=== PATIENT | female | born 1945 | race Caucasian/White ===

== ENCOUNTER 2016-10-22 22:09 | Emergency (ER) | payer SELFPAY ==
[~2016-10-22] VITALS: Ht 160 cm; Wt 71.7 kg
--- NOTE | 2016-10-22 23:30 | NUR ---
Patient discharged to home in stable conditon. Written and verbal after care instructions given. Patient verbalizes understanding of instructions.
== END 2016-10-22 23:32 | disposition home or self-care (01) ==
LOC: ER 22:15
DX: L03.115 Cellulitis of right lower limb (principal)
CPT/HCPCS: A4663

== ENCOUNTER 2021-10-24 10:38 | Emergency (ER) | payer MEDICAID ==
[~2021-10-24] VITALS: Ht 160 cm; Wt 72.6 kg
--- NOTE | 2021-10-24 10:49 | NUR ---
Patient ambulatory accompanied by daughter, complaints of painful skin rash on RLQ of abdomen and right flank started 5 days ago. Denies nausea/vomiting, abdominal pain. Vitals stable.
--- NOTE | 2021-10-24 10:52 | NUR ---
MD at bedside, medical screening exam in process.
[2021-10-24] MEDS ORDERED: HYDROCODONE/APAP 5-325MG TABLET PO ONE (11:00)
[2021-10-24] MEDS ORDERED: ACYCLOVIR 400 MG TABLET PO ONE (11:00)
[2021-10-24] MEDS ORDERED: predniSONE 50 MG TABLET PO ONE (11:00)
[2021-10-24] MEDS ORDERED: ACYCLOVIR 200 MG CAPSULE ONE (11:06)
[2021-10-24] MEDS ORDERED: predniSONE 50 MG TABLET ONE (11:06)
[2021-10-24] MEDS ORDERED: HYDROCODONE/APAP 5-325MG TABLET ONE (11:07)
[2021-10-24] MEDS ORDERED: HYDR-4209 PO (11:09)
[2021-10-24] MEDS ORDERED: PRED50TA PO (11:09)
[2021-10-24] MEDS ORDERED: VALA10002 PO (11:09)
[2021-10-24 11:56] VITALS: BP 121/80
--- NOTE | 2021-10-24 11:56 | NUR ---
Patient discharged to home in stable condition. Written and verbal after care instructions given to patient and family. Patient verbalizes understanding of instructions. Stressed follow up or return to ER for worsening s/s. Instructed not to drive.
== END 2021-10-24 11:57 | disposition home or self-care (01) ==
LOC: ER 10:40
DX: B02.9 Zoster without complications (principal)
CPT/HCPCS: 99284; J7512; A4663

== ENCOUNTER 2021-10-31 11:08 | Emergency (ER) | payer MEDICAID ==
[~2021-10-31] VITALS: Ht 160 cm; Wt 63.5 kg
[~2021-10-31 11:08] MED LIST: HYDR-4209 PO; PRED50TA PO; VALA10002 PO
[2021-10-31] MEDS ORDERED: HYDR-4209 PO (11:37)
[2021-10-31] MEDS ORDERED: GABA300C PO (11:37)
[2021-10-31] MEDS ORDERED: HYDROCODONE/APAP 5-325MG TABLET PO ONE (11:45)
[2021-10-31] MEDS ORDERED: HYDROCODONE/APAP 5-325MG TABLET ONE (11:45)
--- NOTE | 2021-10-31 11:49 | NUR ---
Patient discharged to home in stable condition with brisk steady gait. Written and verbal after care instructions given to patient and family member who speaks fluent Malay. Patient and family verbalized understanding and compliance of instructions. Stressed follow up with primary doctor or return to ER for worsening s/s.
== END 2021-10-31 11:51 | disposition home or self-care (01) ==
LOC: ER 11:09
DX: B02.29 Other postherpetic nervous system involvement (principal); Z87.11 Personal history of peptic ulcer disease
CPT/HCPCS: A4663

== ENCOUNTER 2021-11-15 21:12 | Emergency (ER) | payer MEDICAID ==
[~2021-11-15] VITALS: Ht 165.1 cm; Wt 65.8 kg
[~2021-11-15 21:12] MED LIST changes: +GABA300C PO
--- NOTE | 2021-11-15 21:42 | NUR ---
pt in room 3 states has rash all over body says she thinks she has shingles.
--- NOTE | 2021-11-15 22:18 | NUR ---
Dr. Bello at bedside for MSE.
[2021-11-15] MEDS ORDERED: OXYC-128 PO (22:22)
[2021-11-15] MEDS ORDERED: FAMC500T3 PO (22:22)
[2021-11-15] MEDS ORDERED: OXYCODONE/APAP 5-325 MG TABLET ONE (22:25)
[2021-11-15] MEDS ORDERED: OXYCODONE/APAP 5-325 MG TABLET PO ONE (22:30)
[2021-11-15 22:35] VITALS: BP 128/70
--- NOTE | 2021-11-15 22:35 | NUR ---
Patient discharged to home in stable condition. Written and verbal after care instructions given. Patient verbalizes understanding of instructions. Stressed follow up or return to ER for worsening s/s.
== END 2021-11-15 22:36 | disposition home or self-care (01) ==
LOC: ER 21:23
DX: B02.29 Other postherpetic nervous system involvement (principal); Z87.11 Personal history of peptic ulcer disease; K21.9 Gastro-esophageal reflux disease without esophagitis
CPT/HCPCS: A4663

== ENCOUNTER 2022-02-16 11:59 | Emergency (ER) | payer MEDICAID, OTHER ==
[~2022-02-16] VITALS: Ht 157.5 cm; Wt 63.5 kg
[~2022-02-16 11:59] MED LIST changes: +FAMC500T3 PO; +OXYC-128 PO
[2022-02-16] MEDS ORDERED: IV NORMAL SALINE 500 ML BAG IV ONE (12:45)
[2022-02-16] MEDS ORDERED: MORPHINE SULFATE 4 MG/1 ML DISP.SYRIN IV ONE (12:45)
[2022-02-16] MEDS ORDERED: MORPHINE SULFATE 4 MG/1 ML DISP.SYRIN ONE (12:48)
[2022-02-16 12:59] LABS: *BILIRUBIN,URIN NEGATIVE (NEGATIVE); *CLARITY,URINE CLEAR (CLEAR); *COLOR,URINE YELLOW (YELLOW); *KETONES,URINE NEGATIVE (NEGATIVE); *UROBILINOGEN,URINE 0.2 E.U./dl (NORMAL); LEUKOCYTE ESTERASE ,URINE TRACE (NEGATIVE); NITRITE, URINE NEGATIVE (NEGATIVE); UGLUCOSE NEGATIVE (NEGATIVE)
[2022-02-16 13:19] LABS: HEMATOCRIT 40.8 % (31.2-41.9); MEAN CORPUSCULAR HEMOGLOBIN 30.5 uug (24.7-32.8); MEAN CORPUSCULAR VOLUME 90.6 fL (75.5-95.3); PLATELET COUNT (AUTO) 340 K/uL (179-408)
[2022-02-16 13:20] LABS: *BLOOD, URINE TRACE (NEGATIVE)
[2022-02-16 13:27] LABS: CARBON DIOXIDE 28 mmol/L (21-32); CHLORIDE 102 mmol/L (98-107); CREATININE 0.8 mg/dL (0.6-1.3); GLUCOSE 87 mg/dL (74-106); POTASSIUM 4.4 mmol/L (3.5-5.1); UREA NITROGEN, BLOOD 16 mg/dL (7-18)
[2022-02-16] MEDS ORDERED: SWABABLE VALVE TRANSFER SET EA MC ONE (13:28)
[2022-02-16] MEDS ORDERED: IOHEXOL 350 100 ML INFUS..BTL ONE (13:28)
[2022-02-16] MEDS ORDERED: IV NORMAL SALINE 250 ML IV ONE (13:28)
[2022-02-16 13:36] LABS: ALANINE AMINOTRANSFERASE 28 U/L (14-59); ALKALINE PHOSPHATASE 83 U/L (50-136); ASPARTATE AMINOTRANSFERASE 17 U/L (15-37); BILIRUBIN,DIRECT 0.1 mg/dL (0.0-0.2); BILIRUBIN,TOTAL 0.4 mg/dL (0.2-1.0); TOTAL PROTEIN, SERUM 7.7 g/dL (6.4-8.2)
[2022-02-16 13:44] LABS: BACTERIA,URINE NONE SEEN /HPF (NONE SEEN); RBC,URINE 0-3 /HPF (0-3); SQUAMOUS EPITHELIAL CELL,UR FEW /HPF (NONE SEEN); WBC,URINE 0-3 /HPF (0-3)
[2022-02-16 13:51] LABS: LIPASE 290 U/L (73-393)
--- NOTE | 2022-02-16 19:30 | NUR ---
Change of shift report from Meg KIRKPATRICK
--- NOTE | 2022-02-16 19:30 | NUR ---
received patient nursing general assessment not done by AM shift.
--- NOTE | 2022-02-16 20:16 | NUR ---
Patient discharged to home in stable condition. Written and verbal after care instructions given. Patient verbalizes understanding of instructions. Stressed follow up or return to ER for worsening s/s. Patient is a/ox4, NAD noted. Patient is able to walk with steady gait. Dr Xiong discharged the patient and the patient accidentally took the discharge form with the signature
[2022-02-16 20:24] VITALS: BP 126/71
== END 2022-02-16 20:00 | disposition home or self-care (01) ==
LOC: ER 11:59
DX: R10.9 Unspecified abdominal pain (principal); K86.89 Other specified diseases of pancreas; K21.9 Gastro-esophageal reflux disease without esophagitis; Z87.11 Personal history of peptic ulcer disease; Z20.822 Contact with and (suspected) exposure to COVID-19
CPT/HCPCS: 99285; 74177; 76705; 87426; 80076; 80048; 81001; 83690; 85025; 84484 ×2; 36415; 93005; Q9967; J2270; J7040